=== PATIENT | female | born 1975 | race Caucasian/White ===

== ENCOUNTER → 2016-07-24 | Outpatient (CLI) | payer BC ==
[~2016-07-24] MED LIST: FLUO40CA PO
--- NOTE | 2016-07-26 17:57 | Diagnostic Imaging Report ---
Bilateral screening mammogram The current study was also evaluated with a Computer Aided Detection (CAD) system. Indication: Screening. No current complaints stated on the questionnaire. COMPARISON: 05/24/15 From findings: The breasts are composed of suggested dense parenchyma which may decrease mammographic sensitivity. Surgical clip in the left the breast the lateral aspect is noted. Intramammary lymph node is suggested in the upper outer area of the left breast similar to prior exams. Allowing for technique and positional differences, no suspicious change is seen. IMPRESSION: No significant change. ACR BI-RADS Category 2: Benign findings. Result letter will be mailed to the patient. Note: At least 10% of breast cancer is not imaged by mammography. Dictated by: Dictated on workstation # [id number]
== END ==
LOC: RAD 14:49
PROVIDERS: ATTEND Nurse Practitioner
DX: Z12.31 Encounter for screening mammogram for malignant neoplasm of breast (principal)
CPT/HCPCS: 77067

== ENCOUNTER → 2017-07-30 | Outpatient (CLI) | payer BC ==
--- NOTE | 2017-07-30 12:57 | Diagnostic Imaging Report ---
INDICATION: Routine screening. COMPARISON: 07/24/2016. TECHNIQUE: 2D and 3D bilateral screening mammography was performed with CAD. FINDINGS: Both breasts remain heterogeneously dense, limiting the sensitivity of mammography. No mass or malignant appearing microcalcifications are seen. The axillae are unremarkable. IMPRESSION: No mammographic features suspicious for malignancy are identified. ACR BI-RADS Category 1: Negative. Result letter will be mailed to the patient. Note: At least 10% of breast cancer is not imaged by mammography. Dictated by: Dictated on workstation # [id number]
--- NOTE | 2017-07-30 16:14 | Diagnostic Imaging Report ---
INDICATION: Dysfunctional uterine bleeding after the Pap examination. TECHNIQUE: Multiple real-time grayscale sonographic images were obtained of the pelvis transabdominally and transvaginally. CORRELATION STUDY: None. FINDINGS: UTERUS/ENDOMETRIUM: Uterus measures 9.1 x 5.3 x 4.4 cm. Endometrial thickness is 6 mm. The uterus and endometrium appearing unremarkable. RIGHT OVARY: 3.0 x 2.4 x 2.3 cm. LEFT OVARY: Not visualized, perhaps owing to position and/or obscuration by bowel. There is a hypoechoic mass most compatible with cyst in the right ovary measuring 2.2 x 1.9 x 1.5 cm. Vascular flow demonstrated to the right ovary. No significant free pelvic fluid. IMPRESSION: 1. 2.2 cm right ovarian cyst, perhaps physiologic. 2. Endometrial thickness within normal limits for a premenopausal patient. 3. Nonvisualization of the left ovary. Dictated by: Dictated on workstation # [id number]
== END ==
LOC: RAD 09:15
PROVIDERS: ATTEND Nurse Practitioner
DX: Z12.31 Encounter for screening mammogram for malignant neoplasm of breast (principal); N83.201 Unspecified ovarian cyst, right side
CPT/HCPCS: 76830; 76856; 77067

== ENCOUNTER 2019-08-03 05:34 | Outpatient (RCR) | payer BC ==
[~2019-08-03] VITALS: Ht 165 cm; Wt 72.0 kg
== END 2019-08-03 15:21 | disposition home or self-care (01) ==
LOC: PREOP 05:34
PROVIDERS: ATTEND Internal Medicine
DX: Z01.812 Encounter for preprocedural laboratory examination (principal); R19.7 Diarrhea, unspecified; Z20.828 Contact with and (suspected) exposure to other viral communicable diseases; Z86.010 Personal history of colon polyps
CPT/HCPCS: 87635

== ENCOUNTER 2019-08-06 07:10 | Day surgery (SDC) | payer BC ==
--- NOTE | 2019-07-24 07:59 | HISTORY AND PHYSICAL ---
DATE OF SERVICE: HISTORY OF PRESENT ILLNESS: The patient is a 44-year-old white female referred by Dr. Fontana due to past history of colon polyps and change in bowel habits with increasing diarrhea with urgency. On one occasion, she had small amount of bright red blood per rectum. In the past, she has tended towards constipation, but over the past several months, notices increased urgency with anywhere from 6 to 8 loose stools per day. She does have some mild bloating, which is relieved with the passage of stool. She has noticed decrease in stool caliber, some occasional mucus in the stools, on one occasion was there any evidence for blood. She reports another colonoscopy done by Dr. Clemons in 2011. She recalls waking up and having pain and had a lot of nausea with the prep and has been worried about this. At that time, her medical record was reviewed. She had a 4 mm pedunculated polyp in the proximal rectum. There was notation of diarrhea at that time of recent onset. No reported bowel inflammation was noted. 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 The patient denies any change in weight. She was given a course of Flagyl 500 mg b.i.d. and 40 mg of prednisone daily for 5 days, which she is going to be starting today. FAMILY HISTORY: Pertinent for reported Crohn's disease in her mother and her sister. She believes that her mother likely has irritable bowel syndrome as well. SOCIAL HISTORY: The patient is employed. She is with three children. Had a past 10-year pack smoking history, but quit a number of years ago with occasional social alcohol intake. PAST MEDICAL HISTORY: Otherwise, noncontributory and she is not taking any regular prescription medication at this time, initiating metronidazole and prednisone as noted above. REVIEW OF SYSTEMS: The patient reports stable weight. Denies night sweats, chills, fever. GASTROINTESTINAL: As noted in the HPI. PULMONARY: She denies any cough or chest congestion. CARDIOVASCULAR: She denies orthopnea, PND, pedal edema or dyspnea on exertion. PHYSICAL EXAMINATION: GENERAL: Reveals a white female, appears to be in no acute distress. VITAL SIGNS: Blood pressure 120/78, heart rate 70 and regular, weight 162.8 pounds. HEENT: Unremarkable. Mallampati 2 oropharyngeal configuration. Sclerae nonicteric. CHEST: Clear to auscultation. CARDIOVASCULAR: Reveals a regular rate and rhythm without murmur, S3 or S4. ABDOMEN: Soft, supple without mass or organomegaly. No distention noted. Mild right lower quadrant pain to palpation is noted without rebound or guarding. EXTREMITIES: Reveal no cyanosis, clubbing or edema. ASSESSMENT AND PLAN: For further evaluation of change in bowel habit with past history of tubulovillous adenoma being removed from the rectum, surveillance colonoscopy was set up. With history of nausea with the prep, we will give Zofran 4 mg before each dose with split dose, Suprep bowel cleanse questions were answered. She is likely to have increased sensitivity, so will consult anesthesia for Diprivan administration. In review of her electronic medical record and today's evaluation, little over 45 minutes care time spent. I thank you for the referral of this pleasant lady. Job ID: [id number] DocumentID: [id number] Dictated Date: 07/22/2019 17:28:00 [employer] Surgeon Helper Date: 07/22/2019 18:20:35 Dictated By: SABRINA BAKER MD
[~2019-08-06] VITALS: Ht 165 cm; Wt 72.0 kg
[2019-08-06] MEDS ORDERED: LACTATED RINGERS 1,000 ML IV ONE (07:11)
[2019-08-06] MEDS ORDERED: LACTATED RINGERS 1,000 ML IV STA (07:15)
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
--- OUTSIDE RECORDS SUMMARY | 2019-08-06 07:18 | XMS REPORT | Continuity of Care Document ---
Author Organization Unknown Address Unknown Phone Unavailable Allergies Active Description Code Type Severity Reaction Onset Reported/Identified Relationship to Patient Clinical Status Yes codeine [id number] Drug Allergy Mild N/A 07/02/2011 Yes codeine [id number] Drug Allergy Moderate N/V, RED NECK 07/30/2019 Medications There is no data. 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 09/12/2011 Ot 787.91 VIVI RRHEA 10/16/2011 Ot 626.9 MENS TRUAL DISORDER NOS 10/16/2011 Ot 782.62 FLU SHING 10/16/2011 Ot 787.91 VIVI RRHEA 10/16/2011 Ot 789.03 ABD OMINAL PAIN, RIGHT LOWER QUADRANT 07/19/2016 Ot 620.2 OVAR ESTRELLITA CYST NEC/NOS 07/19/2016 Ot 793.11 BRAYDEN ITARY PULMONARY NODULE 07/19/2016 Ot 787.3 FLAT UL/ERUCTAT/GAS PAIN 07/19/2016 Ot 789.00 ABD OMINAL PAIN, UNSPECIFIED SITE 07/19/2016 Ot V72.84 EXA M PRE- OPERATIVE NOS 07/19/2016 Ot 793.5 NOSP (ABN) FINDINGS ON RADIOLOGICAL OT 07/19/2016 Ot 626.9 MENS TRUAL DISORDER NOS 07/19/2016 Ot 782.62 FLU SHING 07/19/2016 Ot 787.91 VIVI RRHEA 07/19/2016 Ot 789.03 ABD OMINAL PAIN, RIGHT LOWER QUADRANT 07/24/2016 Ot 620.2 OVAR ESTRELLITA CYST NEC/NOS 07/24/2016 Ot 793.11 BRAYDEN ITARY PULMONARY NODULE 07/24/2016 Ot 787.3 FLAT UL/ERUCTAT/GAS PAIN 07/24/2016 Ot 789.00 ABD OMINAL PAIN, UNSPECIFIED SITE 07/24/2016 Ot V72.84 EXA M PRE- OPERATIVE NOS 07/24/2016 Ot 793.5 NOSP (ABN) FINDINGS ON RADIOLOGICAL OT 07/24/2016 Ot 626.9 MENS TRUAL DISORDER NOS 07/24/2016 Ot 782.62 FLU SHING 07/24/2016 Ot 787.91 VIVI RRHEA 07/24/2016 Ot 789.03 ABD OMINAL PAIN, RIGHT LOWER QUADRANT 07/26/2016 FRANK SINGH Ot Z12.3 1 ENCNTR SCREEN MAMMOGRAM FOR MALIGNANT NE 09/04/2016 FRANK SINGH Ot Z12.3 1 ENCNTR SCREEN MAMMOGRAM FOR MALIGNANT NE 09/04/2016 FRANK SINGH Ot Z12.3 1 ENCNTR SCREEN MAMMOGRAM FOR MALIGNANT NE 09/04/2016 Ot 620.2 OVAR ESTRELLITA CYST NEC/NOS 09/04/2016 Ot 793.11 BRAYDEN ITARY PULMONARY NODULE 09/04/2016 Ot 787.3 FLAT UL/ERUCTAT/GAS PAIN 09/04/2016 Ot 789.00 ABD OMINAL PAIN, UNSPECIFIED SITE 09/04/2016 Ot V72.84 EXA M PRE- OPERATIVE NOS 09/04/2016 Ot 793.5 NOSP (ABN) FINDINGS ON RADIOLOGICAL OT 09/04/2016 Ot 626.9 MENS TRUAL DISORDER NOS 09/04/2016 Ot 782.62 FLU SHING 09/04/2016 Ot 787.91 VIVI RRHEA 09/04/2016 Ot 789.03 ABD OMINAL PAIN, RIGHT LOWER QUADRANT 09/04/2016 FRANK SINGH Ot Z12.3 1 ENCNTR SCREEN MAMMOGRAM FOR MALIGNANT NE 05/30/2017 FRANK SINGH Ot Z12.3 1 ENCNTR SCREEN MAMMOGRAM FOR MALIGNANT NE 07/31/2017 FRANK SINGH Ot N93.8 OTHER SPECIFIED ABNORMAL UTERINE AND VAG 07/31/2017 FRANK SINGH Ot Z12.3 1 ENCNTR SCREEN MAMMOGRAM FOR MALIGNANT NE 07/31/2017 FRANK SINGH Ot N83.2 01 UNSPECIFIED OVARIAN CYST, RIGHT SIDE 07/31/2017 FRANK SINGH Ot Z12.3 1 ENCNTR SCREEN MAMMOGRAM FOR MALIGNANT NE 08/22/2017 FRANK SINGH SAP BI ARCHITECT Ot N83.2 01 UNSPECIFIED OVARIAN CYST, RIGHT SIDE 08/22/2017 FRANK SINGHP Ot Z12.3 1 ENCNTR SCREEN MAMMOGRAM FOR MALIGNANT NE 04/28/2019 W J06.9 Uppe r respiratory infection Austen, Cyn 04/28/2019 W K29.70 Gas tritis Austen, Cyn 04/28/2019 W J06.9 Uppe r respiratory infection Austen, Cyn 04/28/2019 W K29.70 Gas tritis Austen, Cyn 04/29/2019 W B34.9 Aleena l infection Austen, Cyn 04/29/2019 W J06.9 Uppe r respiratory infection Austen, Cyn 04/29/2019 W K29.70 Gas tritis Austen, Cyn 07/21/2019 W K29.00 Acu te gastritis without bleeding Austen, Cyn 07/21/2019 W Z86.010 Pe rsonal history of colonic polyps Austen, Cyn 07/21/2019 W K29.00 Acu te gastritis without bleeding Austen, Cyn 07/21/2019 W Z86.010 Pe rsonal history of colonic polyps Austen, Cyn 07/21/2019 W K29.00 Acu te gastritis without bleeding Austen, Cyn 07/21/2019 W Z86.010 Pe rsonal history of colonic polyps Austen, Cyn 07/21/2019 W K29.00 Acu te gastritis without bleeding Austen, Cyn 07/21/2019 W Z86.010 Pe rsonal history of colonic polyps Austen, Cyn Procedures There is no data. Results Test Result Range Coronavirus SARS-CoV-2 SO 2018 - 0 08:00 Coronavirus Ab [Units/volume] in Serum Negative Negative Encounters ACCT No. Visit Date/Time Discharge Status Pt. Type Provider Facility Loc./Unit Complaint 04/06/12 04/30/2018 14:40:11 04/30/2018 23:5 9:59 [facility] Outpatient Nadine Fontana 04/28/2019 13:58:00 Document Registration [id number] 08/03/2019 05:34:00 020 15:21:00 DIS Outpatient SABRINA BAKER MD [facility] PREOP COLONOSCOPY [id number] 07/30/2017 09:15:00 018 23:59:59 CLS Outpatient QUICK, FRANK W SAP BI ARCHITECT [facility] RAD SCREENING,PELVIC PAIN,D UB [id number] 07/24/2016 14:49:00 017 23:59:59 CLS Outpatient QUICK, FRANK W SAP BI ARCHITECT [facility] RAD SCREENING Z12.31 [id number] 08/06/2019 07:30:00 P EN Preadmit SABRINA BAKER MD [facility] ENDO DIARRHEA/HX COLON POLYPS [id number] 10/17/2011 08:45:00 Document Registration [id number] 09/25/2011 14:17:00 Document Registration [id number] 09/12/2011 09:56:00 Document Registration [id number] 09/11/2011 07:33:00 Document Registration [id number] 08/09/2011 13:55:00 Document Registration [id number] 07/27/2011 16:05:00 Document Registration [id number] 07/19/2011 11:50:00 Document Registration [id number] 07/06/2011 12:53:00 Document Registration [id number] 07/02/2011 13:24:00 Document Registration
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
[2019-08-06 07:37] VITALS: BP 118/82
[2019-08-06] MEDS ORDERED: MIDAZOLAM 2 MG/2 ML (VERSED) VIAL ONE (07:40)
[2019-08-06] MEDS ORDERED: proPOfol 200 MG/20 ML (DIPRIVAN) VIAL IV ONE ×2 (07:40→08:09)
--- NOTE | 2019-08-06 07:44 | Pre-Op Note & Conscious Sedat ---
Pre-Operative Progress Note H&P Reviewed The H&P was reviewed, patient examined and no changes noted. Date H&P Reviewed: Aug 06, 2019 Time H&P Reviewed: 07:30 Conscious Sedation Pre-Proced ASA Score 2 For ASA 3 and 4: Consider anesthesia and medical clearance. Also, for patients with a history of failed moderate sedation consider anesthesia. Airway Lungs Heart ASA score ASA 1: a normal healthy patient ASA 2: a patient with a mild systemic disease (mid diabetes, controlled hypertension, obesity ASA 3: a patient with a severe systemic disease that limits activity (angina, COPD, prior Myocardial infarction) ASA 4: a patient with an incapacitating disease that is a constant threat to life (CHF, renal failure) ASA 5: a moribund patient not expected to survive 24 hrs. (ruptured aneurysm) ASA 6: a declared brain- patient whose organs are being harvested. For emergent operations, add the letter E after the classification Mallampati Classification Grade 2 Sedation Plan Analgesia, Amnesia, Plan communicated to team members, Discussed options with patient/fam, Discussed risks with patient/fam The patient is an appropriate candidate to undergo the planned procedure, sedation, and anesthesia. The patient immediately re-assessed prior to indication. SABRINA BAKER MD Aug 06, 2019 07:44
[2019-08-06] MEDS ORDERED: LIDOCAINE JELLY 2% 6 ML SYRINGE ONE (07:47)
[2019-08-06] MEDS ORDERED: LIDOCAINE JELLY 2% 6 ML SYRINGE TOP ONE (08:00)
--- NOTE | 2019-08-06 08:35 | Anesthesia-General Post-Op ---
MAC Patient Condition Mental Status/LOC: Same as Preop Cardiovascular: Satisfactory Nausea/Vomiting: Absent Respiratory: Satisfactory Pain: Controlled Complications: Absent Post Op Complications Complications None Follow Up Care/Instructions Patient Instructions None needed. Anesthesiology Discharge Order Discharge Order Patient is doing well, no complaints, stable vital signs, no apparent adverse anesthesia problems. SHEBA VALENCIA DO Aug 06, 2019 08:35
[2019-08-06 09:00] VITALS: BP_SYST 84; BP_SYST 97; BP_DIAS 44; BP_DIAS 67
[2019-08-06 09:10] VITALS: BP 97/67
--- NOTE | 2019-08-06 10:16 | OPERATIVE REPORT ---
DATE OF SERVICE: COLONOSCOPY SUMMARY INDICATION FOR THE PROCEDURE: Diarrhea, past history of colon polyps. DESCRIPTION OF PROCEDURE: The patient was placed in the left lateral decubitus position. Prior to undergoing colonoscopy, digital rectal evaluation was performed. Anal sphincter tone was normal and the perianal reflex was intact. No abnormalities were noted on digital inspection of anal canal or distal rectal vault. No evidence for internal or external hemorrhoids were noted. The colonoscope was then inserted into the rectum and under direct visualization advanced to the cecum. The cecum was identified by identification of the ileocecal valve and cecal strap. Photographic documentation was obtained. The quality of prep was somewhat suboptimal. There was still a liquid viscous stool predominantly in the right colon, although I was able to visualize the majority of the colon with suctioning. Procedure was done under Diprivan anesthesia. FINDINGS: There was no evidence for internal or external hemorrhoids. One small hyperplastic appearing polyp was noted in the rectum measuring 1 to 2 mm in size. It was photographed and biopsied and ablated and submitted for histopathology with no subsequent blood loss. A biopsy was obtained from the rectum and submitted for histopathology to evaluate for microscopic colitis as well as from the ascending colon. There were no visible signs of inflammatory change involving the entirety of the colon. No evidence for diverticular disease and no other evidence for neoplasia was identified. The distal 5 cm of terminal ileum were inspected and were unremarkable with normal villous architecture. ASSESSMENT: One diminutive polyp was removed from the rectum, was otherwise unremarkable colonoscopy to the cecum including distal 5 cm of terminal ileum with no evidence to suggest inflammatory bowel disease. The patient states that the Flagyl and prednisone that she had been given did not significantly change or reported diarrhea, which is predominantly postprandial. This suggests likely IBS-D and the patient reports she has had symptoms aggravated by stress that go back to her mid 30s. If there is no evidence for microscopic colitis would consider either a course of Xifaxan or if this is not effective Viberzi 100 mg b.i.d. for treatment of IBS. I thank you for the referral of this pleasant lady, reassured by today's findings. Job ID: [id number] DocumentID: [id number] Dictated Date: 08/06/2019 09:02:08 Lithoplate Maker Date: 08/06/2019 10:15:45 Dictated By: SABRINA BAKER MD [facility]
== END 2019-08-06 09:10 | disposition home or self-care (01) ==
LOC: ENDO 07:10
PROVIDERS: ATTEND Internal Medicine
DX: K62.1 Rectal polyp (principal); R19.7 Diarrhea, unspecified; Z83.79 Family history of other diseases of the digestive system; Z87.891 Personal history of nicotine dependence; K21.9 Gastro-esophageal reflux disease without esophagitis; Z88.5 Allergy status to narcotic agent
CPT/HCPCS: 84703; 88305

== ENCOUNTER → 2020-09-30 | Outpatient (CLI) | payer BC ==
--- NOTE | 2020-10-03 07:53 | Diagnostic Imaging Report ---
PROCEDURE: US Gallbladder. TECHNIQUE: Multiple real-time grayscale images were obtained over the right upper quadrant in various projections. INDICATION: Right upper quadrant pain and nausea. FINDINGS: The liver is normal in size without focal lesions. There is hepatopetal flow in main portal vein. There is no biliary duct dilatation. Common bile duct measures 4 mm. There is no cholelithiasis, gallbladder wall thickening or pericholecystic fluid. Pancreas not well-visualized due to bowel gas. Aorta is nonaneurysmal. IVC is patent. Right kidney is normal. There is no ascites. IMPRESSION: Unremarkable right upper quadrant ultrasound. Dictated by: Dictated on workstation # [id number]
== END ==
LOC: RAD 08:41
PROVIDERS: ATTEND Family Medicine
DX: R10.11 Right upper quadrant pain (principal); R11.0 Nausea
CPT/HCPCS: 76705

== ENCOUNTER → 2021-11-10 | Outpatient (CLI) | payer BC ==
--- NOTE | 2021-11-10 11:25 | Diagnostic Imaging Report ---
INDICATION: NODULES COMPARISON: None FINDINGS: Frontal and lateral views of the chest demonstrate normal heart size and pulmonary vascularity. The lungs are clear. There are no signs of infiltrate, pleural effusions or pneumothoraces. The visualized osseous structures show no acute abnormalities. IMPRESSION: 1. No acute process. No signs of infiltrates, effusions or pneumothoraces. Dictated by: Dictated on workstation # [id number]
--- NOTE | 2021-11-10 11:45 | Diagnostic Imaging Report ---
PROCEDURE: Pelvic comp/transvaginal sonogram. TECHNIQUE: Complete transabdominal and transvaginal pelvic ultrasound was performed. In addition, limited pelvic Doppler was performed. INDICATION: Postmenopausal bleeding. Uterus is anteverted measuring 7.7 x 4.3 x 4.8 cm. Endometrium is mildly thickened at 10 mm. There is a nodular looking mass in the lower uterine segment near the cervix measuring 1.6 x 0.4 x 1.4 cm, perhaps a polyp. There is an area of myometrial heterogeneity in the right uterine body measuring 2.0 x 1.6 x 1.8 cm which may represent a fibroid. Right ovary cannot be visualized due to overlying bowel gas. Left ovary measures 2.6 x 1.9 x 2.2 cm. Left ovary does contain a 2.2 cm cyst. There is blood flow to the left ovary. There is no free fluid. IMPRESSION: 1. Probable uterine fibroid. 2. Mildly thickened endometrium. There is ovoid hypoechoic mass in the lower uterine segment near the cervix with internal vascularity. This may represent an endometrial polyp. 3. 2.2 cm left ovarian cyst. Dictated by: Dictated on workstation # [id number]
--- NOTE | 2021-11-10 16:13 | Diagnostic Imaging Report ---
Indication: Routine screening. Comparison is made with prior mammograms from 07/30/2017 and 07/24/2016. 2-D and 3-D bilateral screening mammography was performed with CAD. Both breasts are heterogeneously dense, limiting the sensitivity of mammography. The parenchymal pattern is stable. No mass or malignant-appearing microcalcifications are seen. Axillae are unremarkable. IMPRESSION: BI-RADS Category 1 No mammographic features suspicious for malignancy are identified. ACR BI-RADS Category 1: Negative. Result letter will be mailed to the patient. Note: At least 10% of breast cancer is not imaged by mammography. Dictated by: Dictated on workstation # [id number]
== END ==
LOC: RAD 10:00
PROVIDERS: ATTEND Surgery
DX: Z12.31 Encounter for screening mammogram for malignant neoplasm of breast (principal); N83.202 Unspecified ovarian cyst, left side; N95.0 Postmenopausal bleeding; R93.89 Abnormal findings on diagnostic imaging of other specified body structures; R91.8 Other nonspecific abnormal finding of lung field
CPT/HCPCS: 71046; 76830; 76856; 77063; 77067

== ENCOUNTER 2021-12-05 05:32 | Outpatient (CLI) | payer BC ==
[~2021-12-05] VITALS: Ht 165.1 cm; Wt 80.0 kg
[2021-12-05] MEDS ORDERED: ESTR1TAB27 PO (12:31)
[2021-12-05] MEDS ORDERED: ATOR20TA66 PO (12:31)
[2021-12-05] MEDS ORDERED: [UNRECOGNIZED DRUG - CODE] PO (12:31)
[2021-12-05] MEDS ORDERED: BUPR150T24 PO (12:31)
[2021-12-05] MEDS ORDERED: PANT40TA52 PO (12:31)
[2021-12-05] MEDS ORDERED: LEVO50CA4 PO (12:31)
== END 2021-12-05 13:07 | disposition home or self-care (01) ==
LOC: PREOP 05:32
PROVIDERS: ATTEND Obstetrics & Gynecology
DX: Z01.818 Encounter for other preprocedural examination (principal)

== ENCOUNTER 2021-12-07 11:14 | Day surgery (SDC) | payer BC ==
[2021-12-07] VITALS (10 sets, daily range): BP systolic 95–124; BP diastolic 52–84
[~2021-12-07] VITALS: Ht 165.1 cm; Wt 80.0 kg
[~2021-12-07 11:14] MED LIST changes: +ATOR20TA66 PO; +BUPR150T24 PO; +ESTR1TAB27 PO; +LEVO50CA4 PO; +PANT40TA52 PO; +[UNRECOGNIZED DRUG - CODE] PO
[2021-12-07] MEDS ORDERED: ceFAZolin INJECTION 1,000 MG in NS (IVPB) 50 ML IV ONE (11:30)
[2021-12-07] MEDS ORDERED: LACTATED RINGERS 1,000 ML IV PRN (11:30)
[2021-12-07 12:19] LABS: BASOPHILS # (AUTO) 0.1 10^3/uL (0.0-0.1); BASOPHILS % (AUTO) 1 % (0-10); EOSINOPHILS # (AUTO) 0.2 10^3/uL (0.0-0.3); EOSINOPHILS % (AUTO) 4 % (0-10); HEMATOCRIT 44 % (35-52); HEMOGLOBIN 14.9 g/dL (11.5-16.0); LYMPHOCYTES # (AUTO) 2.1 10^3/uL (1.0-4.0); LYMPHOCYTES % (AUTO) 38 % (12-44); MEAN CORPUSCULAR HEMOGLOBIN 32 pg (25-34); MEAN CORPUSCULAR HGB CONC 34 g/dL (32-36); MEAN CORPUSCULAR VOLUME 93 fL (80-99); MEAN PLATELET VOLUME 9.5 fL (9.0-12.2); MONOCYTES # (AUTO) 0.4 10^3/uL (0.0-1.0); MONOCYTES % (AUTO) 8 % (0-12); NEUTROPHILS # (AUTO) 2.7 10^3/uL (1.8-7.8); NEUTROPHILS % (AUTO) 49 % (42-75); PLATELET COUNT 216 10^3/uL (130-400); WHITE BLOOD COUNT 5.6 10^3/uL (4.3-11.0)
[2021-12-07] MEDS ORDERED: proPOfol 200 MG/20 ML (DIPRIVAN) VIAL IV ONE ×2 (13:18→13:50)
[2021-12-07] MEDS ORDERED: MIDAZOLAM 2 MG/2 ML (VERSED) VIAL ONE (13:19)
[2021-12-07] MEDS ORDERED: fentaNYL INJ 100 MCG/2 ML AMP ONE (13:19)
--- NOTE | 2021-12-07 13:31 | Progress Note-Pre Operative ---
Pre-Operative Progress Note Date of Available H&P: Dec 07, 2021 Date H&P Reviewed: Dec 07, 2021 Time H&P Reviewed: 13:30 History & Physical: H&P Reviewed, No changes noted Pre-Operative Diagnosis: Postmenopausal bleeding SIM MACKAY MD Dec 07, 2021 13:31
--- NOTE | 2021-12-07 13:31 | Progress Note-Post Operative ---
Post-Operative Progess Note Surgeon (s)/Hat Cleaner (s) Surgeon SIM MACKAY MD Hat Cleaner: none Pre-Operative Diagnosis Postmenopausal bleeding Post-Operative Diagnosis Same with pathology pending Procedure & Operative Findings Date of Procedure 12/07/21 Procedure Performed/Findings Hysteroscopy with directed biopsies and D&C Anesthesia Type General Estimated Blood Loss Estimated blood loss (mL): Minimal Specimens/Packing Specimens Removed Directed endometrial biopsy and endometrial curettings SIM MACKAY MD Dec 07, 2021 13:31
[2021-12-07] MEDS ORDERED: IBUP-1780 PO (13:33)
--- NOTE | 2021-12-07 13:34 | Discharge Inst-Surgical ---
Discharge Inst-Surgical Depart Medication/Instructions New, Converted or Re-Newed RX: Transmitted to Pharmacy Consults/Follow Up Patient Instructions: As directed Orders & Referrals Follow Up Appt: Call to make follow up appt. for patient in 2 weeks. Activity: Rest for 24 hours, than as tolerated. Diet: As tolerated shower or tub bathe as desired. No driving for 24 hours, no alcoholic beverages for 24 hours, and nothing per vagina (no tampons, douching, or intercoarse) for 2 weeks. Patient to return to the clinic as soon as possible for: Temperature greater than 101F, Severe Pain, Foul discharge from incision or vagina, Excessive Bleeding (more than a period). Activity Activity as Tolerated: No Diet Discharge Diet: No Restrictions SIM MACKAY MD Dec 07, 2021 13:34
[2021-12-07] MEDS ORDERED: KETOROLAC 30 MG/ML VIAL IVP ONE (13:45)
[2021-12-07] MEDS ORDERED: MEPERIDINE (DEMEROL) INJ 100 MG/ML IM ONE (13:45)
[2021-12-07] MEDS ORDERED: ONDANSETRON 4 MG/2 ML (SDV) Z0FRAN IVP PRN ×2 (13:45→14:15)
[2021-12-07] MEDS ORDERED: PROMETHAZINE INJ 25 MG/ML (PHENERGAN) AMP IM ONE (13:45)
[2021-12-07] MEDS ORDERED: D5 LR IV SOLUTION 1,000 ML IV SCH (13:45)
[2021-12-07] MEDS ORDERED: ESTROGENS CONJ INJECTION 25 MG in WATER (STERILE) FOR INJECTION 5 ML IV ONE (13:45)
[2021-12-07] MEDS ORDERED: ONDANSETRON 4 MG/2 ML (SDV) Z0FRAN ONE (13:50)
[2021-12-07] MEDS ORDERED: LIDOCAINE PF 2% 5 ML (XYLOCAINE) VIAL ONE (13:50)
[2021-12-07] MEDS ORDERED: KETOROLAC 30 MG/ML VIAL ONE (14:03)
[2021-12-07] MEDS ORDERED: SEVOFLURANE (ULTANE) 15 ML INHAL SOLN ONE (14:06)
[2021-12-07] MEDS ORDERED: morphine INJ 10 MG/ML 1ML (SYR OR VIAL) IVP ONE (14:15)
--- NOTE | 2021-12-07 16:16 | Anesthesia-General Post-Op ---
General Patient Condition Mental Status/LOC: Same as Preop Cardiovascular: Satisfactory Nausea/Vomiting: Absent Respiratory: Satisfactory Pain: Controlled Complications: Absent Post Op Complications Complications None Follow Up Care/Instructions Patient Instructions None needed. Anesthesia/Patient Condition Patient Condition Patient is doing well, no complaints, stable vital signs, no apparent adverse anesthesia problems. No complications reported per nursing. ALEX SINGH CRNA Dec 07, 2021 16:16
--- NOTE | 2021-12-07 20:54 | OPERATIVE REPORT ---
DATE OF SERVICE: 12/07/2021 PREOPERATIVE DIAGNOSES: Postmenopausal bleeding. OPERATIVE PROCEDURE: Hysteroscopy with directed biopsy and D and C. OPERATIVE DESCRIPTION: With the patient in the supine position under satisfactory general anesthesia, she was repositioned in dorsal lithotomy position in the Keith stirrups and prepped and draped in the usual fashion for vaginal surgery. Weighted speculum was placed in posterior fornix of vagina, cervix exposed and grasped anteriorly with single tooth tenaculum. Uterus was sounded to 10 cm with uterine sound. The cervix was then serially dilated with Elio dilators to a #20 Elio and then a #9 Hegar dilator was the final step in dilation. Hysteroscope was introduced and using lactated Ringer's as a distending medium, the endometrial cavity was examined. There was a polypoid mass emanating from the posterior surface of the uterus. There was a bulging mass under the posterior surface of the uterus. The left fallopian tube opening could not be clearly seen due to blood clot and debris. The right fallopian tube ostium was normal in appearance. Directed biopsy was performed to remove the polypoid mass and that was taken out in 1 piece and sent to pathology and labeled appropriately. The posterior wall of the uterine cavity with biopsy in the area of the protrusion that was sent to pathology labeled as posterior uterine mass. The endometrial cavity was sharply curettaged in all 4 quadrants to good uterine cry. That tissue was sent as endometrial curettings. The hysteroscope was introduced a final time. The endometrial cavity was examined. The left tubal ostium could be identified now as the bulk of the debris had been removed. The endometrium had been nicely removed. There was no remaining abnormal or concerning tissue. The bulge persisted in the posterior wall of the uterine cavity and this likely is due to submucosal or intramural fibroid. The hysteroscope was removed as was the tenaculum. There was no bleeding from the puncture sites and minimal bleeding from the cervical os. Sponge and needle counts were correct on completion of the procedure. Almost all of the distending medium was recovered that which was not recovered was on the floor. There was less than 100 mL unaccounted for that could have remained in the patient. Sponge and needle counts were correct. Blood loss was minimal. The patient was uneventfully awakened from her general anesthesia and transferred to recovery room in stable condition. Job ID: [id number] DocumentID: [id number] Dictated Date: 12/07/2021 15:01:06 Field Software Engineer Date: 12/07/2021 20:53:45 Dictated By: SIM MACKAY MD MTDD
--- NOTE | 2021-12-08 02:00 | OPERATIVE REPORT ---
DATE OF SERVICE: 12/07/2021 PREOPERATIVE DIAGNOSIS: Postmenopausal bleeding and menorrhagia. POSTOPERATIVE DIAGNOSIS: Postmenopausal bleeding and menorrhagia with pathology pending. OPERATIVE PROCEDURE: Hysteroscopy with directed biopsy and D and C. OPERATIVE DESCRIPTION: With the patient in the supine position under satisfactory general anesthesia, she was repositioned in dorsal lithotomy position in the Keith stirrups and prepped and draped in the usual fashion for vaginal surgery. Weighted speculum placed in posterior fornix of vagina. Cervix was exposed and grasped anteriorly with single tooth tenaculum. The uterus was sounded to 12 cm with uterine sound. The cervix was then serially dilated with Elio dilators to a #20 Elio and then a #9. Hegar dilator was the final step in dilation. The hysteroscope was introduced and using LR as a distending medium, the endometrial cavity was examined. There was a polypoid mass emanating from the posterior surface of the uterus. This was grasped and removed in its entirety and sent to pathology for permanent section. The hysteroscope was reintroduced. There was a bulging projection in the posterior surface of the endometrial cavity, the apex of this was biopsied as well. This appeared suspicious for submucosal or intramural fibroid. That piece of tissue was labeled appropriately and sent to pathology as well. The hysteroscope was removed. The endometrial cavity sharply curettaged in all 4 quadrants to good uterine cry and that tissue sent to pathology as endometrial curettings. The hysteroscope was reintroduced, endometrial cavity was examined a final time. There was no significant bleeding. There was no remaining abnormal pathology. The hysteroscope was removed as was the tenaculum. There was no bleeding from the tenaculum puncture sites. There was no bleeding from the cervical os. Sponge and needle counts correct, hemostasis assured and blood loss minimal. The patient was uneventfully awakened from her general anesthesia and transferred to recovery room in stable condition with plans for discharge home [facility]. Job ID: [id number] DocumentID: [id number] Dictated Date: 12/07/2021 18:37:55 Machine Accountant Date: 12/08/2021 01:59:29 Dictated By: SIM MACKAY MD
== END 2021-12-07 15:58 | disposition home or self-care (01) ==
LOC: SDC 11:14
PROVIDERS: ATTEND Obstetrics & Gynecology
DX: N84.0 Polyp of corpus uteri (principal); N85.8 Other specified noninflammatory disorders of uterus; D25.9 Leiomyoma of uterus, unspecified; F17.210 Nicotine dependence, cigarettes, uncomplicated
CPT/HCPCS: 36415; 84703; 85025; 87081